=== PATIENT | male | born 1940 | race Caucasian/White ===

== ENCOUNTER 2016-11-19 14:53 | Inpatient (IN) | payer OTHER ==
--- NOTE | ~2016-11-19 | DS ---
Unit #: [id number] #: [id number] Patient: GATITO LOPEZ [id number] [place] [id number] I MR#: [id number] NAME: GATITO LOPEZ. ROOM: 571 Age: 76 Sex: M Admission Date: 11/19/2016 : 1940 Discharge Date: 11/22/2016 Attending Physician: Ricardo Portillo M.D. Primary Care Physician: Nimesh Culp M.D. DISCHARGE SUMMARY DISCHARGE DIAGNOSES 1. Acute blood loss anemia. 2. Esophagitis. 3. Gastritis. 4. Duodenal stricture. 5. Anxiety disorder. HOSPITAL COURSE The patient is a 76-year-old male who presented to [facility] emergency on 11/19/16, secondary to some bleeding. He states that on the day of presentation, he had some sharp upper abdominal pain that felt "like a knife." He states that he then had several bouts of emesis which was very dark. He states that he has a history of ulcer disease and it has occurred to him suddenly that he was probably bleeding so he came to the emergency department. In the ED, the patient was initially noted to have a hemoglobin of 14.5. However, it fell precipitously to 11 in the first 24 hours of admission. The patient had no further bleeding while in the hospital, however. The patient was evaluated by gastroenterology and taken for EGD. This was after having been started on an IV Proton pump inhibitor. The EGD found gastritis, esophagitis and a duodenal stricture but no active bleeding. With no intervention required on EGD and no further bleeding noted, the patient was felt safe to discharge home. His diet has been advanced to regular which he is tolerating well at this time. The patient has been counseled to avoid NSAIDs. DISCHARGE MEDICATIONS 1. Xanax 1 mg p.o. b.i.d. 2. Norvasc 10 mg daily. 3. Tenormin 100 mg p.o. daily. 4. Prinivil 40 mg p.o. q. h.s. 5. Fish oil daily. 6. Multivitamin daily. 7. Aspirin 81 mg daily. 8. Nexium 40 mg p.o. b.i.d. 9. Vitamin C 500 mg p.o. daily. FOLLOWUP The patient should follow up with Dr. Valentin for re-evaluation in two to three weeks. Given his duodenal stricture, he may need a dilation. Unit #: [id number] #: [id number] Patient: GATITO LOPEZ Dictated by... Norma Piña/paula TD: 11/24/2016 09:40 JOB #: [id number] DISCHARGE SUMMARY Page 1 of 1 X Ricardo Portillo MD X DISCHARGE SUMMARY
--- NOTE | ~2016-11-19 | FU ---
[facility] Nutrition Therapy DATE: 11/22/16 Patient: GATITO LOPEZ Physician: WHIT Address: [address] Room/Bed: [address] [place] [address], Zip: [place] [address] Admit Date: 11/19/16 Date of : [birth year] Height: 6 0 Weight: 158 71.8 NUTRITION MONITORING/FOLLOW-UP: Reason: CONSULT RE: LOW RESIDUE DIET EDUCATION Anthropometrics: 6'0", WT: 158# (72 KG), BMI: 21.4 -ADMIT WEIGHT: 147# RD PROVIDED WRITTEN AND VERBAL LOW RESIDUE DIET WELL PROVIDED LIST OF FIBER CONTENT OF FOODS. RD EXPLAINED RATIONALE AND PURPOSE OF FOLLOWING SPECIFIC DIET. RD PROVIDED LIST OF FOODS RECOMMENDED AND FOODS NOT RECOMMENDED FOR PT. PT DEMONSTRATED UNDERSTANDING OF THE TOPIC. PT REPORTED NO DIET QUESTIONS AT THIS TIME. OF NOTE, RD ALSO ORDERED ENSURE SHAKES (MARITZA) BID, PER PT REQUEST AND RD ASSESSMENT ON 11/21/16. RD TI WILL ORDER. RD WILL F/U PER PROTOCOL Respectfully, HANNAH GOINS MS, RD, LD [facility] cc: client file
--- NOTE | ~2016-11-19 | HP ---
Unit #: [id number] #: [id number] Patient: GATITO LOPEZ [id number] [facility] [address]. [place], [place] [address] [id number] MR#: [id number] NAME: GATITO LOPEZ. ROOM: 96050 Age: 76 Sex: M Admission Date: 11/19/2016 : 1940 Attending Physician: Damaris Lao M.D. Primary Care Physician: Nimesh Culp M.D. HISTORY AND PHYSICAL CHIEF COMPLAINT Vomiting blood. HISTORY OF PRESENT ILLNESS That patient is a 76-year-old male with a past medical history or peptic ulcer disease, GERD, hypertension, prostate cancer, who presented to the emergency department for evaluation of the above. The patient states that he was in his usual state of health until the evening prior to admission when he developed pain in the upper abdomen. He describes the pain as "like a knife." It is intermittent in nature. There are no exacerbating or alleviating factors. He states it is similar to when he had an ulcer in the past. He has had at least two bouts of coffee ground emesis within the past 24 hours. He denies any diarrhea. No blood in the stool or black tarry stool. He has lost about 10 pounds over the past six months. In the emergency department an initial pulse and blood pressure were 68 and 133/83 respectively. Hemoglobin is 14.5. He was given 40 mg of Protonix in the emergency department and he is being admitted to [facility] for evaluation and further treatment. PAST MEDICAL HISTORY 1. Admission to [facility] 05/10/2007 through 05/15/2007 for bronchitis. 2. GERD. 3. Hypertension. 4. Prostate cancer, status post radiation followed by Dr. Cisneros. 5. Anxiety. 6. Peptic ulcer disease. PAST SURGICAL HISTORY 1. EGD more than ten years ago at [facility] (no records). 2. Colonoscopy by Dr. Reyes at [facility] in 07/2013, showed diverticular disease per the patent (no records). 3. Elbow surgery. 4. Hernia repair. 5. Cataract surgery. SOCIAL HISTORY The patient lives with his . He is retired from law enforcement. He denies tobacco or alcohol use. He typically walks without assistance. He is quite active. He played 27 holes of golf earlier this week. He also enjoys running. Unit #: [id number] #: [id number] Patient: GATITO LOPEZ FAMILY HISTORY Notable for both parents having "heart issues." ALLERGIES No known allergies. HOME MEDICATIONS Xanax 1 mg twice daily p.r.n.; Norvasc 10 mg daily; Tenormin 100 mg daily; Prinivil 40 mg daily; Nexium 40 mg daily; aspirin 81 mg twice daily; vitamin C 500 mg daily; multivitamin daily; fish oil daily. REVIEW OF SYSTEMS A complete review of systems is negative except as indicated in the HPI. PHYSICAL EXAMINATION VITAL SIGNS: Temperature is 97.7, pulse 68, respirations 18, blood pressure 133/83, oxygen saturation 98% on room air. GENERAL: The patient is a very pleasant male who is awake and alert, in no acute distress. HEENT: Head is atraumatic. Mucous membranes are moist. NECK: Supple. Tracheal is midline. CARDIOVASCULAR: Regular rate and rhythm. LUNGS: Clear to auscultation bilaterally with no increased work of breathing. ABDOMEN: Soft. He is tender to palpation in the epigastric area. Bowel sounds are present in all four quadrants. EXTREMITIES: Nontender with no pedal edema. NEUROLOGIC: The patient is awake and alert. He follows commands. PSYCH: Mood and affect are normal. The patient is cooperative. Skin of examined areas is warm and dry. DIAGNOSTIC STUDIES CARDIOLOGY STUDIES: EKG shows normal sinus rhythm at a rate of 66 BPM. LABORATORY STUDIES: Complete blood count notable for white blood cell count of 13.5, hemoglobin is 14.5, comprehensive metabolic panel notable for a sodium of 129, potassium 3, chloride 86, glucose 161, alk phos 93, lipase 38. ASSESSMENT The patient is a 76-year-old male with: 1. Hematemesis with hemoglobin of 14.5. The patient received 40 mg of Protonix in the emergency department. 2. Abdominal pain. 3. History of peptic ulcer disease with EGD more than 10 years ago. 4. Hypokalemia with potassium of 3. 5. Leukocytosis with no obvious source of infection. 6. GERD. 7. Hypertension. 8. History of prostate cancer, status post radiation. 9. Anxiety. PLAN 1. Admit for observation to an intermediate level. 2. Advance diet to clear liquids as tolerated. 3. Normal saline at 75 mL an hour. 4. Protonix 40 mg IV now for a total of 80 mg followed a Protonix drip Unit #: [id number] #: [id number] Patient: GATITO LOPEZ at 8 mg/hour. 5. Hemoglobin and hematocrit q.6 hours. 6. P.r.n. morphine. 7. P.r.n. Zofran. 8. Hold aspirin. 9. Check magnesium level. 10. Potassium and magnesium protocol. 11. Blood cultures x2 for further evaluation and leukocytosis. 12. Urinalysis with culture and sensitivity again for further evaluation of leukocytosis. 13. Cardiac enzymes. 14. Repeat labs in the morning including magnesium. 15. SCDs for DVT prophylaxis. 16. Additional workup and consultants based on above. Dictated by Norma Jacobs/ivy TD: 11/19/2016 17:59 JOB #: [id number] HISTORY AND PHYSICAL Page 1 of 1 X Damaris Lao MD X HISTORY AND PHYSICAL
--- NOTE | ~2016-11-19 | OR ---
Unit #: [id number] #: [id number] Patient: GATITO LOPEZ [id number] [address] [address] [id number] I MR#: [id number] NAME: GATITO LOPEZ. ROOM: 571 Date of Procedure: 11/21/2016 Admission Date: 11/19/2016 Surgeon: Art Valentin M.D. : 1940 Attending Physician: Ricardo Portillo M.D. Primary Care Physician: Nimesh Culp M.D. OPERATIVE REPORT PROCEDURE PERFORMED Esophagogastroduodenoscopy with biopsy. INDICATIONS The patient presented with hematemesis, history of NSAIDs use. MEDICATIONS Monitored anesthesia. POSTOPERATIVE FINDINGS 1. Mild gastritis. 2. Normal esophagus. 3. 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 PLAN 1. Continue PPI therapy. 2. Low-residue diet. 3. Repeat upper endoscopy after 2 to 3 months for dilation of duodenal stricture. DESCRIPTION OF PROCEDURE The patient was explained of the procedure, risks, and benefits along with risks and benefits of anesthesia. He was brought to the endoscopy room. Propofol anesthesia was given. Bite block was placed. The scope was passed down the mouth into the esophagus, stomach, duodenum, and distal duodenum. Findings as described. Biopsies taken. Gently, I pulled the scope out of the patient's mouth. He tolerated it well. No major complications were seen. Dictated by... Norma Ny/dana TD: 12/10/2016 04:51 JOB #: [id number] Unit #: [id number] #: [id number] Patient: GATITO LOPEZ OPERATIVE REPORT Page 1 of 1 X Art Valentin MD X PROCEDURE OPERATIVE NOTE
--- NOTE | ~2016-11-19 | A ---
[facility] Nutrition Therapy DATE: 11/21/16 Patient: GATITO LOPEZ Physician: WHIT Address: [address] Room/Bed: [address] [place] [address], Zip: [place] [address] Admit Date: 11/19/16 Date of : [birth year] Height: 6 0 Weight: 147 66.9 NUTRITIONAL ASSESSMENT: REASON: 2 nutritional risk points re: 10# weight loss past 6 months Dx: 76 y/o male admitted for vomiting blood PMH: peptic ulcer, GERD, HTN, prostate cancer (in remission), anxiety Anthropometrics: ht: 6'0" wt: 147# (67 kg) BMI: 20 Labs: Na+ 134, Ca++ 8.2 Meds: zestril, xanax, mag-sulfate, morphine-sulfate, protonix IV, tenromin, NaCl I/O & Bowel function: 2792/2800. BM 11/19 Skin Integrity: WNL. No edema. Diet: NPO (for EGD) Assessment: Chart reviewed, events noted. Pt was out of the room for an EGD at time of visit, but was in room and provided information on pt. Pt has had ~10# weight loss over the last 6 months due to poor appetite. Pt states that his appetite has not been the same since he underwent radiation therapy for his prostate cancer 10 years ago. reports that the pt drinks ensure at home BID and that he is very active, playing golf every week. RD international marketing executive offered to order ensure when diet is advanced and agreed that pt would like chocolate ensure. RD will continue to follow. Dx: Unintentional weight loss r/t current clinical condition, peptic ulcer, cancer AEB ~10# weight loss over past 6 months (per pt) Intervention: 1. Ensure BID when diet advances Monitoring, Evaluation and Goals: 1. Weight; prevent unintentional weight loss, promote healthy weight maintenance 2. PO intake; when diet advanced, consume >50% of all meals/supplements 3. GI; promote regular GI function, check results of EGD Recommendations: 1. Once diet is advanced to clear liquids, please order ensure clear BID. 2. Once diet is advanced to full liquids or solids, recommend regular diet + please [facility] Nutrition Therapy DATE: 11/21/16 Patient: GATITO Golden JOHN Physician: WHIT Address: [address] Room/Bed: [address] [place] [address], Zip: [place] [address] Admit Date: 11/19/16 Date of : [birth year] Height: 6 0 Weight: 147 66.9 order ensure chocolate BID. 3. Encourage adequate PO intake. RD will f/u per protocol as pt is at mild/moderate nutritional risk. Respectfully, BENTLEY FLOWER, international account manager Luzma Tilley, RD, LD Food and Nutritional Services [facility] cc: client file
--- NOTE | ~2016-11-19 | EKG ---
PATIENT: GATITO LOPEZ UNIT #: [id number] Ventricular Rate: 66 BPM Atrial Rate: 66 BPM P-R Interval: 178 ms QRS Duration: 98 ms Q-T Interval: 450 ms QTC Calculation(Bezet): 471 ms P [place]: 38 degrees Calculated R [place]: 57 degrees Calculated T [place]: 56 degrees Diagnosis Line: Normal sinus rhythm Diagnosis Line: Nonspecific ST abnormality Diagnosis Line: Abnormal ECG Diagnosis Line: No previous ECGs available Diagnosis Line: Confirmed by CLAUDIA ELLISON MD ([id number]) on Diagnosis Line: 11/20/2016 10:38:50 PM INTERPRETING MD: FRANCISCO
[~2016-11-19 14:53] MED LIST: ACETAMINOPHEN PO; ALPRAZOLAM PO; ASPIRIN PO; ATENOLOL PO; FLEXERIL10 MG PO; LISINOPRIL PO; LORATADINE PO; MULTI-VIT/MIN P1 TAB PO; NEXIUM PO; OYSTER CALCIUM500 MG PO; ULTRAM PO; VIT E PO; VITAMIN C PO
[2016-11-19 15:17] LABS: BASOPHIL% 0.2 % (0-2.5); EOSINOPHIL% 0.1 % (0.0-7.0); HEMATOCRIT 42.5 % (38.0-50.0); HEMOGLOBIN 14.5 gm/dL (13.0-16.0); LYMPHOCYTE# 1.1 X10e3 (1.0-3.5); LYMPHOCYTE% 8.4 % (17.0-45.0); MEAN CELL VOLUME 81.8 FL (83-96); MEAN CORPUSCULAR HGB CONC 34.2 g/dL (30-36); MONOCYTE# 0.6 X10e3 (0-1.0); MONOCYTE% 4.2 % (3.0-12.0); NEUTROPHIL# 11.7 X10e3 (1.5-7.1); NEUTROPHIL% 87.1 % (40-75); PLATELET COUNT 359 X10e3 (140-420); RED CELL DISTRIBUTION WIDTH 13.4 % (11.0-15.5); WHITE BLOOD COUNT 13.5 X10e3 (4.0-10.5)
[2016-11-19 15:37] LABS: DIFF IND NO
[2016-11-19 15:44] LABS: ALBUMIN SERUM 4.5 g/dL (3.5-5.0); BILIRUBIN, DIRECT 0.1 mg/dL (0.0-0.2); BILIRUBIN,INDIRECT 0.9 mg/dL (0.0-0.9); BUN/CREATININE RATIO 18.33; CALCIUM SERUM 9.5 mg/dL (8.4-10.2); CREATININE SERUM 0.6 mg/dL (0.6-1.4); GLOM FILT RATE Estimated 98.4 mL/min (>60); PROTEIN TOTAL SERUM 7.7 g/dL (6.0-8.3)
[2016-11-19] MEDS ORDERED: ALPRAZOLAM PO (16:44)
[2016-11-19] MEDS ORDERED: NORVASC PO (16:45)
[2016-11-19] MEDS ORDERED: ATENOLOL PO (16:45)
[2016-11-19] MEDS ORDERED: PRINIVIL40 MG PO (16:47)
[2016-11-19] MEDS ORDERED: NEXIUM PO (16:48)
[2016-11-19] MEDS ORDERED: ASPIRIN81 MG PO (16:48)
[2016-11-19] MEDS ORDERED: VITAMIN C500 MG PO (16:50)
[2016-11-19] MEDS ORDERED: MEN 50 PLUS MU1 EACH PO (16:51)
[2016-11-19] MEDS ORDERED: FISH OIL 500 M1 EAC2 PO (16:58)
[2016-11-19 18:17] LABS: HEMATOCRIT 41.2 % (38.0-50.0); HEMOGLOBIN 13.8 gm/dL (13.0-16.0)
[2016-11-19 18:38] LABS: MAGNESIUM 2.2 mg/dL (1.6-3.0)
[2016-11-19 23:28] LABS: HEMATOCRIT 37.6 % (38.0-50.0); HEMOGLOBIN 12.6 gm/dL (13.0-16.0)
[2016-11-19 23:45] LABS: CK TOTAL 51 IU/L (36-174)
[2016-11-20 05:50] LABS: URINE APPEARANCE CLEAR; URINE BILIRUBIN NEG (NEG); URINE BLOOD NEG (NEG); URINE COLOR YELLOW; URINE GLUCOSE NEG (NEG); URINE KETONE NEG (NEG); URINE LEUKOCYTE ESTERASE NEG (NEG); URINE NITRATE NEG (NEG); URINE PH 7.5 (5-8); URINE PROTEIN 1+ (NEG); URINE SPECIFIC GRAVITY 1.008 (1.003-1.035); URINE UROBILINOGEN 0.2 MG/DL (NEG)
[2016-11-20 05:55] LABS: URBCS1 AUWI 0-2 /[HPF] (0-2); URINE BACTERIA AUWI NEG (NEGATIVE); URINE SQUAMOUS EPITHELIAL CELL NONE SEEN /[HPF]; UWBCS1 AUWI 0-2 (0-5)
[2016-11-20 06:21] LABS: BASOPHIL% 0.2 % (0-2.5); EOSINOPHIL# 0.1 X10e3 (0-0.7); EOSINOPHIL% 0.6 % (0.0-7.0); HEMATOCRIT 35.8 % (38.0-50.0); HEMOGLOBIN 11.6 gm/dL (13.0-16.0); LYMPHOCYTE# 1.5 X10e3 (1.0-3.5); LYMPHOCYTE% 8.4 % (17.0-45.0); MEAN CORPUSCULAR HEMOGLOBIN 27.6 PG (28-34); MEAN CORPUSCULAR HGB CONC 32.5 g/dL (30-36); MEAN PLATELET VOLUME 7.3 FL (6.5-11.5); MONOCYTE# 2.2 X10e3 (0-1.0); MONOCYTE% 12.3 % (3.0-12.0); NEUTROPHIL% 78.5 % (40-75); PLATELET COUNT 314 X10e3 (140-420); RED BLOOD COUNT 4.21 X10e (3.90-5.60); RED CELL DISTRIBUTION WIDTH 13.5 % (11.0-15.5); WHITE BLOOD COUNT 17.9 X10e3 (4.0-10.5)
[2016-11-20 06:23] LABS: DIFF IND YES
[2016-11-20 06:53] LABS: BUN/CREATININE RATIO 34.28; CALCIUM SERUM 8.5 mg/dL (8.4-10.2); CREATININE SERUM 0.7 mg/dL (0.6-1.4); GLOM FILT RATE Estimated 92.4 mL/min (>60); POTASSIUM 4.3 mmol/L (3.5-5.1)
[2016-11-20 07:04] LABS: PLATELET ESTIMATE NORMAL (NORMAL)
[2016-11-20 07:22] LABS: %MB 2.8 % (0.0-4.0); MB 1.7 ng/ml
[2016-11-20 12:35] LABS: HEMATOCRIT 34.5 % (38.0-50.0); HEMOGLOBIN 11.3 gm/dL (13.0-16.0)
[2016-11-20 18:50] LABS: HEMATOCRIT 34.9 % (38.0-50.0); HEMOGLOBIN 11.3 gm/dL (13.0-16.0)
[2016-11-21 00:35] LABS: HEMATOCRIT 32.9 % (38.0-50.0); HEMOGLOBIN 11.2 gm/dL (13.0-16.0)
[2016-11-21 05:42] LABS: HEMATOCRIT 34.2 % (38.0-50.0); HEMOGLOBIN 11.3 gm/dL (13.0-16.0); MEAN CELL VOLUME 84.7 FL (83-96); MEAN PLATELET VOLUME 7.6 FL (6.5-11.5); RED BLOOD COUNT 4.04 X10e (3.90-5.60); RED CELL DISTRIBUTION WIDTH 13.8 % (11.0-15.5); WHITE BLOOD COUNT 9.6 X10e3 (4.0-10.5)
[2016-11-21 06:25] LABS: BUN/CREATININE RATIO 21.66; CALCIUM SERUM 8.2 mg/dL (8.4-10.2); CREATININE SERUM 0.6 mg/dL (0.6-1.4); GLOM FILT RATE Estimated 98.4 mL/min (>60); POTASSIUM 3.9 mmol/L (3.5-5.1)
[2016-11-21 10:51] LABS: HEMOGLOBIN 11.2 gm/dL (13.0-16.0)
[2016-11-21 16:45] LABS: HEMOGLOBIN 11.7 gm/dL (13.0-16.0)
[2016-11-22 05:34] LABS: HEMATOCRIT 33.1 % (38.0-50.0); MEAN CELL VOLUME 84.2 FL (83-96); MEAN CORPUSCULAR HGB CONC 33.2 g/dL (30-36); MEAN PLATELET VOLUME 7.3 FL (6.5-11.5); RED BLOOD COUNT 3.93 X10e (3.90-5.60); RED CELL DISTRIBUTION WIDTH 13.3 % (11.0-15.5); WHITE BLOOD COUNT 9.5 X10e3 (4.0-10.5)
[2016-11-22 06:53] LABS: ALBUMIN SERUM 3.6 g/dL (3.5-5.0); BILIRUBIN,TOTAL 0.7 mg/dL (0.2-2.0); BUN/CREATININE RATIO 13.33; CALCIUM SERUM 8.1 mg/dL (8.4-10.2); CREATININE SERUM 0.6 mg/dL (0.6-1.4); GLOM FILT RATE Estimated 98.4 mL/min (>60); POTASSIUM 3.2 mmol/L (3.5-5.1); PROTEIN TOTAL SERUM 6.1 g/dL (6.0-8.3)
[2016-11-22] MEDS ORDERED: PROTONIX PO (16:33)
[2017-02-17] MEDS ORDERED: ASPIRIN81 M2 PO (10:53)
[2017-02-17] MEDS ORDERED: LISINOPRIL20 MG PO (10:53)
[2017-02-17] MEDS ORDERED: OMEGA RED PO (11:00)
== END 2016-11-22 18:33 | disposition home or self-care (01) | DRG 378 ==
LOC: CED 14:53 → C5C 17:15 → CEDOF 17:15 → CED 17:42 → CEDOF 17:42 → C5C 20:44 → CEDOF 20:44 → C5C 20:44
PROVIDERS: Emergency Medicine; Family Medicine; Internal Medicine; Nurse Practitioner
PROC: 0DJ08ZZ Inspection of Upper Intestinal Tract, Via Natural or Artificial Opening Endoscopic (ICD-10-PCS; principal; 2016-11-21 14:51)
DX: K92.0 Hematemesis (principal); D62 Acute posthemorrhagic anemia; K31.5 Obstruction of duodenum; I10 Essential (primary) hypertension; Z87.11 Personal history of peptic ulcer disease; Z85.46 Personal history of malignant neoplasm of prostate; F41.9 Anxiety disorder, unspecified; E87.6 Hypokalemia; D72.829 Elevated white blood cell count, unspecified; K21.0 Gastro-esophageal reflux disease with esophagitis; K29.70 Gastritis, unspecified, without bleeding
CPT/HCPCS: 36415; 80048; 80053; 80076; 81003; 82550; 82553; 83690; 83735; 84484; 85014; 85018; 85025; 85027; 87040; 87086; 88305; 88312; 93005; 99285; C9113; J1885; J2270; J2405; J3475